=== PATIENT | female | born 1990 ===

== ENCOUNTER 2021-07-03 13:11 | Emergency (ER) | payer OTHER, SELFPAY ==
[2021-07-03 13:15] VITALS: BP 119/83; PULSE 81; RESP 20; TEMP 36.7; O2SAT 98
== END 2021-07-03 13:33 | disposition left against medical advice (07) ==
PROVIDERS: Emergency Provider Emergency Medicine
DX: R11.2 Nausea with vomiting, unspecified (principal)
CPT/HCPCS: 99281